=== PATIENT | female | born 1930 | race Caucasian/White ===

== ENCOUNTER 2016-08-31 09:26 | Inpatient (IN) | payer OTHER, MEDICARE ==
[~2016-08-31] VITALS: Ht 165.1 cm; Wt 65.8 kg
[~2016-08-31 09:26] MED LIST: LEXAPRO 10MG10 MG PO; LOTRISONE CREAM15 GM TOP; MOTRIN 400MG (400 MG PO; NORVASC 2.5 MG2.5 MG PO; TRAZODONE50 MG PO
--- NOTE | 2016-08-31 09:35 | ED ANKLE/FOOT INJURY COMPLAINT ---
History of Present Illness General Chief Complaint: Fall Stated Complaint: FELL OUT OF BED, L ANKLE PAIN Source: patient, family, old records, EMS Exam Limitations: dementia Vital Signs & Intake/Output Vital Signs & Intake/Output Vital Signs Date Time Temp Pulse Resp B/P Pulse O2 O2 Flow FiO2 Ox Delivery Rate 08/31 1224 98.6 86 18 157/72 98 Room Air 08/31 1202 97.8 88 19 150/62 96 Room Air 08/31 0927 97.4 90 18 154/65 95 Room Air Allergies Coded Allergies: NO KNOWN ALLERGIES (06/13/14) Reconcile Medications Amlodipine (Norvasc 2.5 MG Tab) 2.5 MG TABLET 1 TAB PO DAILY HTN (Reported) Amlodipine (Norvasc 2.5 MG Tab) 2.5 MG TABLET 1 MG PO DAILY HTN Lotrisone (Lotrisone Cream) 1 %-0.05 % CREAM..G. 1 SHERINE TOP QAMPM PRN RASH UNDER BREASTS (Reported) apply to affected area(s) Triage Nurses Notes Reviewed? yes HPI: PT FELL OUT OF BED THIS MORNING. SHE DENIES HITTING HER HEAD AND DENIES LOC. PT TOLD EMS THAT SHE HURT HER LEFT SHOULDER. ON ARRIVAL TO THE ER SHE DENIED LEFT SHOULDER OPAIN BUT STATES THAT SHE HAS PAIN IN HER LEFT ANKLE. THE PAIN INCREASES WITH MONEMENT. THERE IS NO RADIATION. SHE DESCRIBES THE PAIN SHARP. PAIN IS MODERATE ON THE SCALE. SHE DENIES ANUY OTHER INJURY. Past History Travel History Traveled to [place] past 21 day No Medical History Any Pertinent Medical History? see below for history Neurological: dementia EENT: NONE Cardiovascular: hypertension Respiratory: NONE Gastrointestinal: NONE Hepatic: NONE Renal: NONE Musculoskeletal: NONE Psychiatric: anxiety, depression, psychosis Endocrine: NONE History of MRSA: No History of VRE: No History of CDIFF: No Influenza Vaccine: 06/13/14 Surgical History Surgical History: non-contributory Psychosocial History Who do you live with Patient/Self What is your primary language Polish Tobacco Use: Never used ETOH Use: denies use Illicit Drug Use: denies illicit drug use Family History Hx Contributory? No Review of Systems Review of Systems Constitutional: Reports: no symptoms. EENTM: Reports: no symptoms. Respiratory: Reports: no symptoms. Cardiovascular: Reports: no symptoms. GI: Reports: no symptoms. Genitourinary: Reports: no symptoms. Musculoskeletal: Reports: see HPI, joint pain, joint swelling. Skin: Reports: no symptoms. Neurological/Psychological: Reports: no symptoms. Hematologic/Endocrine: Reports: no symptoms. Immunologic/Allergic: Reports: no symptoms. All Other Systems: Reviewed and Negative Physical Exam Physical Exam General Appearance: well developed/nourished, mild distress Head: atraumatic Eyes: Bilateral: PERRL, EOMI. Ears, Nose, Throat: normal pharynx, normal ENT inspection, hearing grossly normal Neck: normal inspection, supple, no midline tenderness Cardiovascular/Respiratory: normal breath sounds, normal peripheral pulses, regular rate/rhythm, no respiratory distress Back: normal inspection Leg/Knee/Thigh Left: normal range of motion, normal inspection Leg/Knee/Thigh Right: normal range of motion, normal inspection Ankle Left: ecchymosis, evidence of injury, pain, soft tissue tenderness, swelling Ankle Right: normal inspection, normal range of motion Foot Left: normal inspection, normal range of motion Foot Right: normal inspection, normal range of motion Neuro/Vascular: normal motor function, normal sensation Psychiatric: awake, alert, oriented x 3 Skin: intact, normal color, warm/dry Progress Differential Diagnosis: fracture, dislocation, sprain, contusion Plan of Care: Orders Procedure Date/time Status Regular Diet 08/31 D Active Patient Data 08/31 1519 Active Admit to inpatient 08/31 1508 Active URINALYSIS 08/31 1316 Complete COMPREHENSIVE METABOLIC PANEL 08/31 1316 Complete CBC WITHOUT DIFFERENTIAL 08/31 1316 Complete CASE MANAGEMENT CONSULT 08/31 1038 Active Laboratory Tests 08/31/16 1350: Anion Gap 12, Estimated GFR > 60, BUN/Creatinine Ratio 30.0 H, Glucose 170 H, Calcium 9.1, Total Bilirubin 0.7, AST 42 H, ALT 37, Alkaline Phosphatase 53, Total Protein 6.9, Albumin 4.3, Globulin 2.6, Albumin/Globulin Ratio 1.7, CBC w Diff NO MAN DIFF REQ, RBC 4.22, MCV 90.8, MCH 30.2, RDW 13.6, MPV 6.9 L, Gran % 81.9 H, Lymphocytes % 10.1 L, Monocytes % 7.5, Eosinophils % 0.2, Basophils % 0.3, Absolute Granulocytes 6.3, Absolute Lymphocytes 0.8 L, Absolute Monocytes 0.6, Absolute Eosinophils 0, Absolute Basophils 0, PUBS MCHC 33.3, Urinalysis LIGHT H, Urine Color YEL, Urine Clarity CLEAR, Urine pH 6.0, Ur Specific [place] 1.020, Urine Protein TRACE H, Urine Ketones NEG, Urine Nitrite NEG, Urine Bilirubin NEG, Urine Urobilinogen 0.2, Ur Leukocyte Esterase TRACE H, Ur Microscopic SEDIMENT EXAMINED, Urine WBC 1-3 H, Ur Epithelial Cells RARE, Urine Mucus FEW, Urine Hemoglobin NEG, Urine Glucose NEG Diagnostic Imaging: Viewed by Me: Radiology Read. Discussed w/RAD: Radiology Read. Radiology Impression: PATIENT: RODRICK DOWLING PRESENT AGE: 85 PATIENT ACCOUNT NO: [id number] : 32 LOCATION: [facility] ORDERING PHYSICIAN: DELORES BOLAÑOS MD SERVICE DATE: 08/31/16 EXAM TYPE: RAD - XRY-ANKLE 3 OR MORE VIEWS L EXAMINATION: XR ANKLE, LEFT CLINICAL INFORMATION: Fell out of bed. Pain. COMPARISON: None TECHNIQUE: AP, lateral, and mortise views of the left ankle. FINDINGS: 5 mm displaced lateral malleolar fracture with bimalleolar soft tissues swelling. Widening of the ankle mortise is seen anteriorly and laterally. No additional fractures seen. There is small size calcaneal heel spur. IMPRESSION: 5 mm displaced lateral malleolar fracture with moderate bimalleolar soft tissue swelling. Small calcaneal heel spur. DICTATED BY: DONALD CRUZ MD DATE/TIME DICTATED:08/31/161010 DRAPERY HAND:ALIVIA DATE/TIME TRANSCRIBED:08/31/161010 CONFIDENTIAL, DO NOT COPY WITHOUT APPROPRIATE AUTHORIZATION. <Electronically signed in Other Vendor System> SIGNED BY: DONALD CRUZ MD 08/31/16 1016, PATIENT: RODRICK DOWLING PRESENT AGE: 85 PATIENT ACCOUNT NO: [id number] : 32 LOCATION: [facility] ORDERING PHYSICIAN: DELORES BOLAÑOS MD SERVICE DATE: 08/31/16 EXAM TYPE: RAD - XRY-SHOULDER COMPLETE-LEFT EXAMINATION: XR SHOULDER, LEFT CLINICAL INFORMATION: Pain status post fall. Evaluate for fracture. COMPARISON: None TECHNIQUE: 3 views of the left shoulder. FINDINGS: Diffuse osteopenia. No acute fracture or dislocation. Glenohumeral joint space poorly evaluated due to slightly nonstandard positioning. There may be mild joint space narrowing. Mild degenerative changes at the acromioclavicular joint. No soft tissue calcifications. IMPRESSION: Osteopenia. No acute fracture or dislocation. DICTATED BY: ESTRELLITA POLLARD MD DATE/TIME DICTATED:08/31/161138 DRAPERY HAND:ALIVIA DATE/TIME TRANSCRIBED:08/31/161138 CONFIDENTIAL, DO NOT COPY WITHOUT APPROPRIATE AUTHORIZATION. <Electronically signed in Other Vendor System> SIGNED BY: ESTRELLITA POLLARD MD 08/31/16 1146 Comments: AFTER BEING IN ER, SHE BEGAN TO COMPLAIN OF LEFT SHOULDER PAIN WITH MOVEMENT, NO RADIAITON, ACHY SENSATION, NO RADAITION, MILD ON THE ASCALE. D/W DR. GILBERT, HE WILL SEE PT AN OUTPATIENT. Departure Departure Disposition: STILL A PATIENT Condition: Stable Clinical Impression Primary Impression: Closed left ankle fracture Referrals: ARMANI ZAPATA,ALO Martin Departure Forms: Customer Survey General Discharge Information Admission Note Spoke With: ANNA ZAPATA,GT Miller Documentation of Exam: Documentation of any treatments & extenuating circumstances including Concerns Regarding Discharge (functional status, medication knowledge or non-compliance, living conditions, etc.) that warrant an admission rather than observation: [PT IS NONWEIGHT BEARING ON LEFT ANKLE, SHE IS FROM [facility] BUT WILL BE UNSAFE TO RETURN THERE SECONDARY TO HER ANKLE FRACTURE. SHE WILL REQUIRE ADMISSION AND SUBSEQUENT PLACEMENT. PT WILL NEED TO SEE PT, CASE MANAGEMENT CONSULT. PT IS UNABLE TO CARE FOR HERSELF AT [facility]] Procedures Splinting Location: LEFT ANKLE Manual Alignment Performed: Yes Hand-Made Type: orthoglass Splint: POSTERIOR AND U-BOOT Splint Applied By: splint applied by in Pre-Proc Neuro Vasc Exam: normal Post-Proc Neuro Vasc Exam: normal
--- NOTE | 2016-08-31 10:16 | RADIOLOGY REPORT ---
EXAMINATION: XR ANKLE, LEFT CLINICAL INFORMATION: Fell out of bed. Pain. COMPARISON: None TECHNIQUE: AP, lateral, and mortise views of the left ankle. FINDINGS: 5 mm displaced lateral malleolar fracture with bimalleolar soft tissues swelling. Widening of the ankle mortise is seen anteriorly and laterally. No additional fractures seen. There is small size calcaneal heel spur. IMPRESSION: 5 mm displaced lateral malleolar fracture with moderate bimalleolar soft tissue swelling. Small calcaneal heel spur.
--- NOTE | 2016-08-31 11:46 | RADIOLOGY REPORT ---
EXAMINATION: XR SHOULDER, LEFT CLINICAL INFORMATION: Pain status post fall. Evaluate for fracture. COMPARISON: None TECHNIQUE: 3 views of the left shoulder. FINDINGS: Diffuse osteopenia. No acute fracture or dislocation. Glenohumeral joint space poorly evaluated due to slightly nonstandard positioning. There may be mild joint space narrowing. Mild degenerative changes at the acromioclavicular joint. No soft tissue calcifications. IMPRESSION: Osteopenia. No acute fracture or dislocation.
[2016-08-31 14:13] LABS: ABSOLUTE BASOPHIL COUNT 0 /CUMM (0.0-0.2); ABSOLUTE EOSINOPHIL COUNT 0 /CUMM (0.0-0.7); ABSOLUTE GRANULOCYTE CT 6.3 /CUMM (1.4-6.5); ABSOLUTE LYMPH COUNT 0.8 /CUMM (1.2-3.4); ABSOLUTE MONOCYTE COUNT 0.6 /CUMM (0.10-0.60); BASOPHIL % 0.3 % (0.0-2.0); EOSINOPHIL % 0.2 % (0-5); GRANULOCYTE % 81.9 % (42.2-75.2); HEMATOCRIT 38.3 % (37-47); MEAN CORPUSCULAR HGB 30.2 PG (27.0-31.0); MEAN CORPUSCULAR HGB CONC 33.3 G/DL (33.0-37.0); MEAN CORPUSCULAR VOLUME 90.8 FL (81.0-99.0); MEAN PLATELET VOLUME 6.9 FL (7.4-10.4); PLATELET COUNT 143 /CUMM (130-400); RBC DISTRIBUTION WIDTH 13.6 % (11.5-14.5); RED BLOOD CELL CT 4.22 /CUMM (4.20-5.40); WHITE BLOOD CELL COUNT 7.8 /CUMM (4.8-10.8)
--- NOTE | 2016-08-31 15:25 | History & Physical ---
EDWARD VIRK 08/31/16 1524: General Information and HPI MD Statement: I have seen and personally examined RODRICK DOWLING and documented this H&P. The patient is a 85 year old F who presented with a patient stated chief complaint of [left shoulder and ankle pain]. Source of Information: patient, family, old records Exam Limitations: unable to give history, not alert/orientated History of Present Illness: Mrs Dowling is an 85-year-old lady with a PMH of dementia, HTN, depression/ anxiety who was brought in by ambulance from [facility] after a fall earlier this morning. Information was obtained from the patient's family member: They received a call this morning from the facility that she had suffered 2 falls out of bed. On arrival her primary complaint was the left shoulder and ankle pain. At her baseline she ambulates with the aid of a rolling walker, is independent with most of her ADLs (feeding, dressing) but does require assistance with hygiene and IADLs. At the moment the patient annmarie endorse occasional discomfort in her left ankle and knee. She denies any chest pain, shortness of breath, palpitations abdominal pain worsening pain in the left. Allergies/Medications Allergies: Coded Allergies: NO KNOWN ALLERGIES (06/13/14) Home Med list Acetaminophen (8 Hour) 650 MG TABLET.ER 1 TAB PO BID PAIN (Reported) Amlodipine Besylate 5 MG TABLET 1 TAB PO DAILY BP (Reported) Diclofenac Sodium (Voltaren) 1 % GEL..GRAM. 4 GM TOP BID PRN KNEE PAIN ( Reported) apply to affected area(s) Docusate Sodium (Colace) 100 MG CAPSULE 1 CAP PO BID STOOL SOFTENER (Reported ) Furosemide (Lasix) 20 MG TABLET 1 TAB PO DAILY DIURETIC (Reported) Olanzapine 15 MG TABLET 1 TAB PO QHS MENTAL HEALTH (Reported) Pregabalin (Lyrica) 25 MG CAPSULE 1 CAP PO BID PAIN (Reported) Trazodone HCl 50 MG TABLET 1 TAB PO QHS MENTAL HEALTH/ANXIETY (Reported) Past History Travel History Traveled to [place] past 21 day No Medical History Neurological: dementia EENT: NONE Cardiovascular: hypertension Respiratory: NONE Gastrointestinal: NONE Hepatic: NONE Renal: NONE Musculoskeletal: NONE Psychiatric: anxiety, depression, psychosis Endocrine: NONE History of MRSA: No History of VRE: No History of CDIFF: No Surgical History Surgical History: non-contributory Past Family/Social History Psychosocial History ETOH Use: denies use Illicit Drug Use: denies illicit drug use Review of Systems Review of Systems Constitutional: Reports: see HPI. EENTM: Reports: no symptoms. Cardiovascular: Reports: no symptoms. Respiratory: Reports: no symptoms. GI: Reports: no symptoms. Musculoskeletal: Reports: see HPI. Neurological/Psychological: Reports: no symptoms. Exam & Diagnostic Data Last 24 Hrs of Vital Signs/I&O Vital Signs Date Time Temp Pulse Resp B/P Pulse O2 O2 Flow FiO2 Ox Delivery Rate 08/31 1608 98.6 103 18 157/81 96 Room Air 08/31 1224 98.6 86 18 157/72 98 Room Air 08/31 1202 97.8 88 19 150/62 96 Room Air 08/31 0927 97.4 90 18 154/65 95 Room Air Intake & Output 08/31 1600 08/31 0800 08/31 0000 Intake Total Output Total Balance Patient 145 lb Weight Physical Exam General Appearance Alert, Cooperative, AAO X1 (person) Skin No Breakdown HEENT EOMI, Mucous Membr. moist/pink Cardiovascular Regular Rate, Normal S1, Normal S2 Lungs Normal Air Movement, Diminshed breath sounds in the basilar regions Abdomen Normal Bowel Sounds, Soft, No Tenderness, Umbilical hernia present that is easily reducible with light pressure Neurological Normal Speech, Sensation Intact Extremities No Edema, Normal Pulses, Left leg is wrapped in a clean bandage. She is able to spontaneously flex her toes. Sensation intact in the toes Last 24 Hrs of Labs/Gerardo: Laboratory Tests 08/31/16 1350: Anion Gap 12, Estimated GFR > 60, BUN/Creatinine Ratio 30.0 H, Glucose 170 H, Calcium 9.1, Total Bilirubin 0.7, AST 42 H, ALT 37, Alkaline Phosphatase 53, Total Protein 6.9, Albumin 4.3, Globulin 2.6, Albumin/Globulin Ratio 1.7, CBC w Diff NO MAN DIFF REQ, RBC 4.22, MCV 90.8, MCH 30.2, RDW 13.6, MPV 6.9 L, Gran % 81.9 H, Lymphocytes % 10.1 L, Monocytes % 7.5, Eosinophils % 0.2, Basophils % 0.3, Absolute Granulocytes 6.3, Absolute Lymphocytes 0.8 L, Absolute Monocytes 0.6, Absolute Eosinophils 0, Absolute Basophils 0, PUBS MCHC 33.3, Urinalysis LIGHT H, Urine Color YEL, Urine Clarity CLEAR, Urine pH 6.0, Ur Specific [place] 1.020, Urine Protein TRACE H, Urine Ketones NEG, Urine Nitrite NEG, Urine Bilirubin NEG, Urine Urobilinogen 0.2, Ur Leukocyte Esterase TRACE H, Ur Microscopic SEDIMENT EXAMINED, Urine WBC 1-3 H, Ur Epithelial Cells RARE, Urine Mucus FEW, Urine Hemoglobin NEG, Urine Glucose NEG Assessment/Plan Assessment: 85-year-old lady with a PMH of dementia, HTN, depression/anxiety who was BIBA from [facility] after suffering a fall this morning. VS: 154/65, HR 90, RR 18, SPO2 95% on RA, T 97.4 Pertinent labs: WBC 12.7/30.3, BUN/Cr CR 18/0.6, glucose 170, sodium 142, potassium 3.7 Left ankle x-ray: 5 mm displaced lateral malleolar fracture with bimalleolar soft tissues swelling. Widening of the ankle mortise is seen anteriorly and laterally. No additional fractures seen. There is small size calcaneal heel spur. Problem list: 1. Please lateral malleolus fracture 2. HTN 3. Depression/anxiety Plan: * Admit to general medicine for further management * AM team: Please contact orthopedics to evaluate the patient. Family requests to have a discussion with orthopedics in the a.m. with regards to risks/benefits of surgery versus conservative management * Analgesia: Tylenol 975 mg Q8 scheduled. Will avoid opioids in the setting of potential delirium if possible * Continue Lyrica 25 mg BID * DVT prophylaxis: Heparin subcutaneous * HTN: Continue amlodipine 5 mg, furosemide 20 mg. Check orthostatics in the a.m. * Depression: Continue with olanzapine 15 mg and trazodone 50 mg QHS * PT evaluation once weightbearing status has been provided by orthopedics * Regular diet * CODE STATUS: DNR/DNI AM TEAM: * Patient's son who is POA is currently traveling and may not have phone service. If need be, contact his Veronica Dowling * Follow-up vitamin D level and if below 20, consider 50,000 international units supplementation As Ranked By This Provider Problem List: 1. Closed left ankle fracture 2. Depression 3. High blood pressure 4. Dementia Core Measures/Miscellaneous Acute Coronary Syndrome ACS Diagnosis: No Cerebrovascular Accident CVA/TIA Diagnosis: No Congestive Heart Failure CHF Diagnosis: No Venous Thromboembolism VTE Risk Factors: Age > 40 VTE Prophylaxis Ordered Inpt: Pharm- Lovenox No Mech VTE prophylaxis d/t: No contraindications No VTE Pharm Prophylaxis d/t: No contraindications VTE Diagnosis: No VTE Type: NONE VTE Confirmed by (Test): NONE Severe Sepsis Severe Sepsis Present: No Septic Shock Septic Shock Present: No Miscellaneous Documentation Attending Case Discussed With: ANNA ZAPATA,GT Miller Primary Care Physician: CINDY PARTIDA MD Patient sees these Specialists NA Level of Patient Care: General Medicine Resident Review Statement Resident Statement: examined this patient, discussed with qa internship, agreed with qa internship, discussed with family, discussed with nursing, reviewed images GT CASTILLO MD 08/31/16 1904: Attending MD Review Statement Attending Statement Attending MD Statement: examined this patient, discuss w/resident/PA/CHIEF SALES OFFICER, agreed w/resident/PA/CHIEF SALES OFFICER, discussed with family, reviewed EMR data (avail), discussed with nursing, reviewed images Attending Assessment/Plan: 85-year-old female past medical history of dementia, underlying psychiatric diagnosis on olanzapine and trazodone and hypertension. She is here status post a fall at the assisted living facility with an ankle fracture and a non weight bearing status. Given the non weight bearing status and the inability to use the walker she is being admitted as she is unsafe to be discharged to the assisted living facility and will need active physical therapy and likely STR placement. We'll continue her Norvasc and Lasix, continue her olanzapine and Lyrica, continue her trazodone. Put her on DVT prophylaxis. Use nonnarcotic analgesia to avoid triggering delirium in a patient with underlying dementia and follow-up with PT closely.
[2016-08-31] MEDS ORDERED: COLACE100 M1 PO (16:51)
[2016-08-31] MEDS ORDERED: AMLODIPINE BESYL5 M1 PO (16:51)
[2016-08-31] MEDS ORDERED: LASIX20 M1 PO (16:51)
[2016-08-31] MEDS ORDERED: 8 HOUR650 MG PO (16:52)
[2016-08-31] MEDS ORDERED: OLANZAPINE15 M1 PO (16:53)
[2016-08-31] MEDS ORDERED: LYRICA25 M1 PO (16:53)
[2016-08-31] MEDS ORDERED: VOLTAREN100 GM TOP (16:54)
[2016-08-31] MEDS ORDERED: TRAZODONE HCL50 M1 PO (16:54)
--- NOTE | 2016-08-31 19:07 | Admission Certification ---
Admission Certification Certification Statement - As attending physician, I certify that at the time of - admission, based on clinical presentation, severity of - symptoms, need for further diagnostic testing and - therapeutic interventions, and risk of adverse outcomes - without in-hospital treatment, in my clinical assessment, - this patient requires an acute hospital stay for a minimum - of two nights or longer. I have also considered psychsocial - factors such as support system, advanced age, financial - issues, cognitive issues, and failed out-patient treatments, - past re-admission history, safety of patient, and lack of - compliance as applicable. Specific rationale supporting this admission is: fall with ankle fracture and non weight bearing ambulation status
[2016-08-31 19:39] VITALS: BP 148/92
[2016-09-01 00:24] VITALS: BP 128/30
--- NOTE | 2016-09-01 08:23 | PN- Housestaff ---
Subjective Follow-up For: left shoulder and ankle pain Subjective: Patient is alert, oriented to time and place, knows she is in [place] and that she hurt her left ankle and came here. warren not appear in distress, reports pain 8/10 in the left foot. reports her sister knows she is in the hospital. Patient denies any fever, chills, SOB, abdominal pain, N/V, diarrhea. Review of Systems Constitutional: Denies: chills, fever, weakness. EENTM: Reports: no symptoms. Cardiovascular: Reports: no symptoms. Respiratory: Reports: no symptoms. Gastrointestinal: Reports: no symptoms. Genitourinary: Reports: no symptoms. Musculoskeletal: Reports: joint pain (left ankle). Skin: Reports: no symptoms. Objective Last 24 Hrs of Vital Signs/I&O Vital Signs Date Time Temp Pulse Resp B/P Pulse O2 O2 Flow FiO2 Ox Delivery Rate 09/01 0937 86 136/80 09/01 0923 97.8 86 20 136/80 94 Room Air 09/01 0600 97.7 09/01 0024 99.0 88 20 128/30 93 08/31 1939 98.0 107 18 148/92 93 Room Air 08/31 1845 98.6 92 18 153/84 98 Room Air 08/31 1608 98.6 103 18 157/81 96 Room Air 08/31 1224 98.6 86 18 157/72 98 Room Air 08/31 1202 97.8 88 19 150/62 96 Room Air Intake & Output 09/01 1600 09/01 0800 09/01 0000 Intake Total 120 400 Output Total 350 Balance 120 50 Intake, Oral 120 400 Output, Urine 350 Physical Exam General Appearance: Alert, Cooperative, No Acute Distress Skin: there is swelling and edema as well as bruising over the left foot, ankle and distal left leg is immobilized by a splint. HEENT: Atraumatic, EOMI Neck: Supple, No JVD Cardiovascular: Regular Rate, Normal S1, Normal S2 Lungs: Normal Air Movement, decreased breath sounds at bases Abdomen: Normal Bowel Sounds, Soft, No Tenderness, distended, umbilical hernia noted, reducible, no tenderness erythema and discoloration noted. Neurological: Normal Speech, Normal Tone Extremities: Normal Pulses, swelling and tenderness over the left foot, ankle and distal lower extremity are covered with dressing and are immobilized with a splint, patient is able to move her toes, sensation intact Vascular: Pulses Symmetrical Current Medications: Current Medications Sig/Jenn Start time Last Medication Dose Route Stop Time Status Admin Acetaminophen 975 MG TID 08/31 1851 AC 09/01 PO 0937 Acetaminophen 650 MG Q6P PRN 08/31 1800 DC PO Amlodipine Besylate 5 MG DAILY 09/01 1000 AC 09/01 PO 0937 Diclofenac Sodium 1 SHERINE BID PRN 08/31 1815 AC TOP Docusate Sodium 100 MG BID 08/31 2200 AC 09/01 PO 0937 Enoxaparin Sodium 40 MG AT BEDTIME 08/31 2200 AC 08/31 SC 2143 Furosemide 20 MG DAILY 09/01 1000 AC 09/01 PO 0936 Ibuprofen 600 MG Q6P PRN 08/31 2115 AC PO Influenza Virus 0.5 ML ONCE ONE 08/31 2044 DC Vaccine IM 08/31 204 Olanzapine 15 MG AT BEDTIME 08/31 2200 AC 08/31 PO 2143 Oxycodone HCl 10 MG Q6P PRN 08/31 1800 DC PO Oxycodone/ 1 TAB Q6P PRN 08/31 1800 DC Acetaminophen PO Patient Medication 1 UNIT ONE NR 08/31 1845 [place] Teaching [place] 08/31 1900 Patient Medication 1 UNIT ONE NR 08/31 1845 [place] Teaching [place] 08/31 1900 Pregabalin 25 MG BID 08/31 2199 AC 09/01 PO 0945 Trazodone HCl 50 MG AT BEDTIME 08/31 2199 AC 08/31 PO 2143 Last 24 Hrs of Lab/Gerardo Results Last 24 Hrs of Labs/Mics: Laboratory Tests 08/31/16 1350: Anion Gap 12, Estimated GFR > 60, BUN/Creatinine Ratio 30.0 H, Glucose 170 H, Calcium 9.1, Total Bilirubin 0.7, AST 42 H, ALT 37, Alkaline Phosphatase 53, Total Protein 6.9, Albumin 4.3, Globulin 2.6, Albumin/Globulin Ratio 1.7, 25-OH Vitamin D Total 5.8 L, CBC w Diff NO MAN DIFF REQ, RBC 4.22, MCV 90.8, MCH 30.2 , RDW 13.6, MPV 6.9 L, Gran % 81.9 H, Lymphocytes % 10.1 L, Monocytes % 7.5, Eosinophils % 0.2, Basophils % 0.3, Absolute Granulocytes 6.3, Absolute Lymphocytes 0.8 L, Absolute Monocytes 0.6, Absolute Eosinophils 0, Absolute Basophils 0, PUBS MCHC 33.3, Urinalysis LIGHT H, Urine Color YEL, Urine Clarity CLEAR, Urine pH 6.0, Ur Specific [place] 1.020, Urine Protein TRACE H, Urine Ketones NEG, Urine Nitrite NEG, Urine Bilirubin NEG, Urine Urobilinogen 0.2, Ur Leukocyte Esterase TRACE H, Ur Microscopic SEDIMENT EXAMINED, Urine WBC 1-3 H, Ur Epithelial Cells RARE, Urine Mucus FEW, Urine Hemoglobin NEG, Urine Glucose NEG Assessment/Plan Assessment: 85-year-old lady with a PMH of dementia, HTN, depression/anxiety who was BIBA from [facility] after suffering a fall this morning. VS: 154/65, HR 90, RR 18, SPO2 95% on RA, T 97.4 Pertinent labs: WBC 12.7/30.3, BUN/Cr CR 18/0.6, glucose 170, sodium 142, potassium 3.7 Left ankle x-ray: 5 mm displaced lateral malleolar fracture with bimalleolar soft tissues swelling. Widening of the ankle mortise is seen anteriorly and laterally. No additional fractures seen. There is small size calcaneal heel spur. Problem list: 1. lateral malleolus fracture 2. HTN 3. Depression/anxiety Plan: * Orthopedics saw the patient and had discussion with family with regards to risks/benefits of surgery versus conservative management. * Analgesia: Tylenol 975 mg Q8 scheduled. Will avoid opioids in the setting of potential delirium if possible * Continue Lyrica 25 mg BID * DVT prophylaxis: Lovenox subcutaneous * HTN: Continue amlodipine 5 mg, furosemide 20 mg. * Depression: Continue with olanzapine 15 mg and trazodone 50 mg QHS * PT evaluation put in will follow * Regular diet * CODE STATUS: DNR/DNI Patient's son who is POA is currently traveling and may not have phone service. If need be, contact his Veronica David * Follow-up vitamin D level and if below 20, consider 50,000 international units supplementation Problem List: 1. Closed left ankle fracture 2. Dementia Pain Ratin Pain Location: left ankle Pain Goal: Pain 4 or less Pain Plan: tylenol diclofenac ibuprofen Tomorrow's Labs & Rationales: BEP (monitor Cr)
[2016-09-01 09:23] VITALS: BP 136/80
--- NOTE | 2016-09-01 10:07 | PN- Att Addend ---
Attending Addendum Attending Brief Note Patient seen and examined. Agree with the internal corrosion specialist's note 85-year-old female past medical history of dementia, underlying psychiatric diagnosis on olanzapine and trazodone and hypertension. She is here status post a fall at the assisted living facility with a left ankle displaced e fracture and a non weight bearing status. Given the non weight bearing status and the inability to use the walker she is being admitted as she is unsafe to be discharged to the assisted living facility and will need active physical therapy and likely STR placement. Dr. Correa from orthopedics is going to see her officially today. We'll continue her Norvasc and Lasix, continue her olanzapine and Lyrica, continue her trazodone. Put her on DVT prophylaxis. Use nonnarcotic analgesia to avoid triggering delirium in a patient with underlying dementia. Please encourage by mouth intake and make sure patient's not getting dehydrated. Please follow-up BEP with BUN and creatinine in a.m. .
--- NOTE | 2016-09-01 11:06 | Cons- Orthopedic ---
General Information and HPI Consulting Request Date of Consult: 09/01/16 Requested By: GT CASTILLO MD Reason for Consult: Left ankle fracture Source of Information: family Exam Limitations: confusion, poor historian History of Present Illness: Danii is a 85-year-old female who was brought to emergency room from a assisted-living facility with complaints of left ankle pain. X-rays in the emergency room revealed a displaced distal fibular fracture of the left ankle. She was splinted. She was admitted to medical service for placement to a rehabilitation facility. This morning on examination the patient's pleasant somewhat confused. She complains of mild left ankle pain. Allergies/Medications Allergies: Coded Allergies: NO KNOWN ALLERGIES (06/13/14) Home Med List: Acetaminophen (8 Hour) 650 MG TABLET.ER 1 TAB PO BID PAIN (Reported) Amlodipine Besylate 5 MG TABLET 1 TAB PO DAILY BP (Reported) Diclofenac Sodium (Voltaren) 1 % GEL..GRAM. 4 GM TOP BID PRN KNEE PAIN ( Reported) apply to affected area(s) Docusate Sodium (Colace) 100 MG CAPSULE 1 CAP PO BID STOOL SOFTENER (Reported ) Furosemide (Lasix) 20 MG TABLET 1 TAB PO DAILY DIURETIC (Reported) Olanzapine 15 MG TABLET 1 TAB PO QHS MENTAL HEALTH (Reported) Pregabalin (Lyrica) 25 MG CAPSULE 1 CAP PO BID PAIN (Reported) Trazodone HCl 50 MG TABLET 1 TAB PO QHS MENTAL HEALTH/ANXIETY (Reported) Current Medications: Current Medications Sig/Jenn Start time Last Medication Dose Route Stop Time Status Admin Acetaminophen 975 MG TID 08/31 1851 AC 09/01 PO 0937 Acetaminophen 650 MG Q6P PRN 08/31 1800 DC PO Amlodipine Besylate 5 MG DAILY 09/01 1000 AC 09/01 PO 0937 Diclofenac Sodium 1 SHERINE BID PRN 08/31 1815 AC TOP Docusate Sodium 100 MG BID 08/31 2200 AC 09/01 PO 0937 Enoxaparin Sodium 40 MG AT BEDTIME 08/31 2199 AC 08/31 SC 2143 Furosemide 20 MG DAILY 09/01 1000 AC 09/01 PO 0936 Ibuprofen 600 MG Q6P PRN 08/31 2115 AC PO Influenza Virus 0.5 ML ONCE ONE 08/31 2044 DC Vaccine IM 08/31 2045 Olanzapine 15 MG AT BEDTIME 08/31 2200 AC 08/31 PO 2143 Oxycodone HCl 10 MG Q6P PRN 08/31 1800 DC PO Oxycodone/ 1 TAB Q6P PRN 08/31 1800 DC Acetaminophen PO Patient Medication 1 UNIT ONE NR 08/31 1845 DC Teaching ED 08/31 1900 Patient Medication 1 UNIT ONE NR 08/31 1845 DC Teaching ED 08/31 1900 Pregabalin 25 MG BID 08/31 2199 AC 09/01 PO 0945 Trazodone HCl 50 MG AT BEDTIME 08/31 2199 AC 08/31 PO 2143 Past History Medical History Blood Transfusion Hx: No Neurological: dementia EENT: NONE Cardiovascular: hypertension Respiratory: NONE Gastrointestinal: NONE Hepatic: NONE Renal: NONE Musculoskeletal: NONE Psychiatric: anxiety, depression, psychosis Endocrine: NONE Blood Disorders: NONE Cancer(s): NONE TEST HOLE DRILLER/Reproductive: NONE Surgical History Pertinent Surgical History: non-contributory Psychosocial History Where Do You Live? Assisted Living Smoking Status: Unknown If Ever Smoked ETOH Use: denies use Illicit Drug Use: denies illicit drug use Exam & Diagnostic Data Vital Signs and I&O On physical exam the patientVital Signs Date Time Temp Pulse Resp B/P Pulse O2 O2 Flow FiO2 Ox Delivery Rate 09/01 0937 86 136/80 09/01 0923 97.8 86 20 136/80 94 Room Air 09/01 0600 97.7 09/01 0024 99.0 88 20 128/30 93 08/31 1939 98.0 107 18 148/92 93 Room Air 08/31 1845 98.6 92 18 153/84 98 Room Air 08/31 1608 98.6 103 18 157/81 96 Room Air 08/31 1224 98.6 86 18 157/72 98 Room Air 08/31 1202 97.8 88 19 150/62 96 Room Air Intake & Output 09/01 1600 09/01 0800 09/01 0000 08/31 1600 08/31 0800 08/31 0000 Intake Total 120 400 Output Total 350 Balance 120 50 Intake, Oral 120 400 Output, Urine 350 Patient 145 lb Weight On physical exam the patient is awake and alert. Head and neck exam reveals a normocephalic atraumatic skull. Pupils are equal round and reactive. The neck is supple with no JVD. There is no pain with range of motion of the cervical spine. Abdomen is round soft and nontender. Cardiovascular exam reveals S1 and S2. Lungs are clear bilaterally. Bilateral partial knee exams reveal some mild pain with range of motion of the right shoulder. There's no gross crepitus. The right upper extremity neurovascular intact. The left upper extremity has no pain with range of motion of the shoulder elbow or wrist. It is neurovascularly intact. The right lower extremity has no pain with range of motion of the hip knee or ankle. It is neurovascularly intact. The left dorsum has a splint in place and the lower leg. Capillary refills less than 2 seconds. Sensation light touch is intact in the toes. She has no pain with range of motion of the hip or knee. Assessment/Plan Assessment/Plan X-rays of the left ankle reveal displaced fibular fracture with no widening of the ankle mortise. Plan the patient will be treated nonoperatively, nonweightbearing for 6 weeks in the splint or in a cast. I will repeat x-rays that were placed on the left ankle following splint application to make sure there's been no significant change in alignment. I did have a conversation with the patient's power of attorneys . The fact that the power of assistant prosecuting attorney is on the road traveling. The understands the surgical plan. I do not anticipate that the patient will need surgical intervention however if there is a change in alignment or plans we have up to 10 days and to fix the fracture. As was explained to the power of assistant prosecuting attorney his . Consult Acknowledgment - Thank you for your consult request.
--- NOTE | 2016-09-01 15:48 | RADIOLOGY REPORT ---
EXAMINATION: XR ANKLE, LEFT CLINICAL INFORMATION: Left ankle fracture with splint placement.. COMPARISON: Left ankle 08/31/2016. TECHNIQUE: AP, lateral, and mortise views of the left ankle. FINDINGS: There is a lateral fibular fracture stabilized with the left ankle splint. The fracture fragments are in alignment. There is bimalleolar soft tissue swelling as noted before. No change in the calcaneal heel spur. No additional fractures seen. IMPRESSION: Lateral fibular fracture utilized with the left ankle in a splint. The fracture fragments are in alignment. There is bimalleolar soft tissue swelling as was noted on the previous study.
[2016-09-01 16:20] VITALS: BP 140/72
[2016-09-02 00:39] VITALS: BP 118/84
--- NOTE | 2016-09-02 06:36 | Discharge Summary ---
Visit Information Visit Dates Admission Date: 08/31/16 Discharge Date: 09/03/2016 Hospital Course Course Attending Physician: CORNELL ZAPATA,CAPRICE Gonzales Primary Care Physician: CINDY PARTIDA MD Consulting Request: Consulting Specialty: Orthopedics Hospital Course: Mrs David is an 85-year-old lady with a PMH of dementia, HTN, depression/ anxiety who was brought in by ambulance from [facility] after a fall out of bed earlier that morning. Most information was obtained from a family member who reported receiving a call that she had suffered 2 falls out of bed and was complaining of left shoulder and ankle pain. At her baseline she ambulates with the aid of a rolling walker, is independent with most of her ADLs (feeding, dressing) does require some assistance with hygiene and IADLs. On initial presentation in the ER the patient complained of discomfort in her left knee and ankle. VS: 154/65, HR 90, RR 18, SPO2 95% on RA, T 97.4 PE on admission: AAO 1 (person) is. Most mucous membranes. RRR, normal S1/S2. Normal air movement with diminished breath sounds and basilar regions. Normal bowel sounds, soft, nontender with evidence of umbilical hernia that was easily reducible to light pressure. No edema, normal pulses and distal dorsalis pedis. Left leg is wrapped in a clean bandage. She is able to spontaneously flex her toes. Sensation intact in the toes Pertinent labs: WBC 12.7/30.3, BUN/Cr CR 18/0.6, glucose 170, sodium 142, potassium 3.7 Left ankle x-ray: 5 mm displaced lateral malleolar fracture with bimalleolar soft tissues swelling. Widening of the ankle mortise is seen anteriorly and laterally. No additional fractures seen. There is small size calcaneal heel spur. The patient was admitted to the general medicine floor for management of the following problems: Problem list: 1. 5 mm displaced lateral malleolar fracture with bimalleolar soft tissues swelling. 2. HTN 3. Depression/anxiety 4. Vitamin D deficiency Hospital course: 1. 5 mm displaced lateral malleolar fracture with bimalleolar soft tissues swelling. * The left ankle was splinted with a repeat x-ray showing fracture fragments in alignment as well as evidence of bimalleolar soft tissue swelling * Patient was assessed by our orthopedic surgeon Dr. Goodrich. Per his recommendations, in the setting of no widening of the ankle mortise, she will be treated nonoperatively with nonweightbearing for 6 weeks in the splint/cast. However, if there were to be a change in alignment or plans per family request, the plan would be to have the fix performed within 10 days of her current fracture * Current plan is to discharge the patient to short-term rehabilitation * Enteric-coated aspirin 81 mg daily for the next 6 weeks 2. HTN * Continued on amlodipine 5 mg daily. Blood pressure remained well controlled 3. Depression/anxiety * Continued her home dose of trazodone 50 mg daily at bedtime, olanzapine 15 mg daily at bedtime 4. Vitamin D deficiency * Vitamin D level of 5.8 * Restarted the patient on high-dose vitamin D 50,000 international units Q weekly Allergies: Coded Allergies: NO KNOWN ALLERGIES (06/13/14) Disposition Summary Disposition Principal Diagnosis: 5 mm displaced lateral malleolar fracture with bimalleolar soft tissues swelling. Additional Diagnosis: Vitamin D deficiency HTN Depression/anxiety Discharge Disposition: SNF Discharge Instructions General Discharge Information Code Status: Do Not Resucitate/Intubat Patient's Diet: Regular diet Patient's Activity: Nonweightbearing of left ankle for 6 weeks Follow-Up Instructions/Appts: Please follow-up with her PCP within 1-2 weeks after discharge. If the left ankle fracture were to become displaced or the pain were to significantly worsen, please contact your orthopedic surgeon immediately for recommendations on further management. In the setting of low vitamin D patient is started on high-dose vitamin D once weekly. Medications at Discharge Discharge Medications: Continue taking these medications: Docusate Sodium (Colace) 100 MG CAPSULE 1 Capsule ORAL TWICE DAILY Comments: Last Taken: 09/03/16 Time: 11:00 AM Amlodipine Besylate (Amlodipine Besylate) 5 MG TABLET 1 Tablet ORAL DAILY Comments: Last Taken: 09/03/16 Time: 11:00 AM Furosemide (Lasix) 20 MG TABLET 1 Tablet ORAL DAILY Comments: Last Taken: 09/03/16 Time: 11:00 AM Acetaminophen (8 Hour) 650 MG TABLET.ER 1 Tablet ORAL THREE TIMES DAILY Qty = 30 Comments: Last Taken: 09/03/16 Time: 11:00 AM RECIEVED 975 MG Pregabalin (Lyrica) 25 MG CAPSULE 1 Capsule ORAL TWICE DAILY Comments: Last Taken: 09/03/16 Time: 11:00 AM Olanzapine (Olanzapine) 15 MG TABLET 1 Tablet ORAL TAKE AT BEDTIME Comments: Last Taken: 09/02/16 Time: 10:00 PM Trazodone HCl (Trazodone HCl) 50 MG TABLET 1 Tablet ORAL TAKE AT BEDTIME Comments: Last Taken: 09/02/16 Time: 10:00 PM Diclofenac Sodium (Voltaren) 1 % GEL..GRAM. 4 Gram On the skin TWICE DAILY as needed for KNEE PAIN Instructions: apply to affected area(s) Comments: DID NOT RECEIVE IN HOSPITAL Start taking the following new medications: Ergocalciferol (Vitamin D2) (Vitamin D2) 50,000 UNIT CAPSULE 1 Tablet ORAL ONCE A WEEK Qty = 11 No Refills Aspirin (Ecotrin*) 81 MG TABLET.DR 1 Tablet ORAL DAILY Qty = 42 No Refills Comments: DID NOT RECEIVE IN HOSPITAL Copies To: JAQUAN ZAPATA,ALEX GOODRICH MD,VINCENZO Pike Attending MD Review Statement Documenting Attending: CORNELL ZAPATA,CAPRICE Gonzales Other Findings: Agree with the above discharge plan and summary. Patient being discharged to subacute rehabilitation today.
--- NOTE | 2016-09-02 07:20 | PN- Housestaff ---
See Addendum Subjective Follow-up For: LEFT ANKLE PAIN Subjective: Patient is alert, oriented to person and place and that she hurt her left ankle and came here. Knows it is Sarai but thinks it is spring time or summer and does not recall the year. Braun not appear in distress, is less talking compared to yesterday and is more startled. Patient denies any fever, chills, SOB, chest pain, abdominal pain, N/V, diarrhea. Review of Systems Constitutional: Denies: chills, fever. EENTM: Reports: no symptoms. Cardiovascular: Reports: no symptoms. Respiratory: Reports: no symptoms. Gastrointestinal: Reports: no symptoms. Genitourinary: Reports: no symptoms. Musculoskeletal: Denies: joint pain. Skin: Reports: no symptoms. Neurological/Psychological: Reports: paresthesia (left foot). Objective Last 24 Hrs of Vital Signs/I&O Vital Signs Date Time Temp Pulse Resp B/P Pulse O2 O2 Flow FiO2 Ox Delivery Rate 09/02 0039 97.1 77 20 118/84 96 09/01 1620 98.3 97 20 140/72 94 Room Air 09/01 0937 86 136/80 09/01 0923 97.8 86 20 136/80 94 Room Air Physical Exam General Appearance: Alert, Cooperative, No Acute Distress Skin: there is swelling and bruising at the site of the fracture, distal leg, ankle and foot on the left side. HEENT: Atraumatic, EOMI Neck: Supple, No JVD Cardiovascular: Regular Rate, Normal S1, Normal S2, No Murmurs Lungs: Clear to Auscultation, Normal Air Movement Abdomen: Soft, No Tenderness Neurological: Normal Tone, sensation (to touch) on the left foot and toes are intact in the exam. Extremities: Normal Pulses Vascular: Pulses Symmetrical Current Medications: Current Medications Sig/Jenn Start time Last Medication Dose Route Stop Time Status Admin Acetaminophen 975 MG TID 08/31 1851 AC 09/01 PO 2202 Amlodipine Besylate 5 MG DAILY 09/01 1000 AC 09/01 PO 09 Cholecalciferol 1,000 IU DAILY 09/01 1240 AC 09/01 PO 1650 Diclofenac Sodium 1 SHERINE BID PRN 08/31 1815 AC TOP Docusate Sodium 100 MG BID 08/31 220 AC 09/01 PO 2203 Enoxaparin Sodium 40 MG AT BEDTIME 08/31 2199 AC 09/01 SC 2211 Furosemide 20 MG DAILY 09/01 1000 AC 09/01 PO 0936 Ibuprofen 600 MG Q6P PRN 08/31 2114 AC PO Olanzapine 15 MG AT BEDTIME 08/31 2199 AC 09/01 PO 220 Pregabalin 25 MG BID 08/31 2199 AC 09/01 PO 220 Trazodone HCl 50 MG AT BEDTIME 08/31 2199 AC 09/01 PO 2202 Last 24 Hrs of Lab/Gerardo Results Last 24 Hrs of Labs/Mics: Laboratory Tests 09/02/16 0616: Anion Gap 7, Estimated GFR > 60, BUN/Creatinine Ratio 21.3 Assessment/Plan Assessment: 85-year-old lady with a PMH of dementia, HTN, depression/anxiety who was BIBA from [facility] after suffering a fall this morning. VS: 154/65, HR 90, RR 18, SPO2 95% on RA, T 97.4 Pertinent labs: WBC 12.7/30.3, BUN/Cr CR 18/0.6, glucose 170, sodium 142, potassium 3.7 Left ankle x-ray: 5 mm displaced lateral malleolar fracture with bimalleolar soft tissues swelling. Widening of the ankle mortise is seen anteriorly and laterally. No additional fractures seen. There is small size calcaneal heel spur. Problem list: 1. lateral fibula fracture, no misalignment 2. HTN 3. Depression/anxiety 4. Vitamin D deficiency Plan: * Orthopedics saw the patient and had discussion with family with regards to risks/benefits of surgery versus conservative management and decided for conservative management, repeat Xray did not show any mislignment. Will discharge the patient to [facility]. * Analgesia: Tylenol 975 mg Q8 scheduled. Will avoid opioids in the setting of potential delirium if possible * Continue Lyrica 25 mg BID * DVT prophylaxis: Lovenox subcutaneous * HTN: Continue amlodipine 5 mg, furosemide 20 mg. * Depression: Continue with olanzapine 15 mg and trazodone 50 mg QHS * started treatment with 50,000 IU vitamin D weekly for eight weeks * PT evaluation put in will follow * Regular diet * CODE STATUS: DNR/DNI Patient's son who is POA is currently traveling and may not have phone service. If needed, contact her son's Veronica David Problem List: 1. High blood pressure 2. Depression 3. Closed left ankle fracture 4. Dementia 5. Vitamin D deficiency Pain Ratin Pain Location: left ankle Pain Goal: Pain 4 or less Pain Plan: tylenol Tomorrow's Labs & Rationales: none
[2016-09-02 08:38] VITALS: BP 120/70
[2016-09-02 16:29] VITALS: BP 135/73
[2016-09-03 00:52] VITALS: BP 132/78
--- NOTE | 2016-09-03 07:01 | PN- Housestaff ---
See Addendum Subjective Follow-up For: Left fibular fracture Subjective: I saw and examined Joanne this am, she is alert, oriented to place but not place and time. Does not speak much but makes eye contacts and responds in 2-3 word sentences. Patient has corssed her legs in bed. Does not response when asked if she feels more comfortable or has pain. Reports she does not remember is she has moved her bowels, does not report abdominal pain, no chest pain or SOB. She follows directions and moves her toes when asked, she does not repond when asked if she feel when touching her toes but moves them when touched, response is symmetric on both sides. Review of Systems Constitutional: Denies: chills, fever, weakness. EENTM: Reports: no symptoms. Cardiovascular: Denies: chest pain, palpitations. Respiratory: Denies: cough, short of breath. Gastrointestinal: Reports: constipation. Denies: abdominal pain, nausea, vomiting. Genitourinary: Reports: no symptoms. Musculoskeletal: Reports: no symptoms. Skin: Reports: no symptoms. Neurological/Psychological: Reports: dementia. Objective Last 24 Hrs of Vital Signs/I&O Vital Signs Date Time Temp Pulse Resp B/P Pulse O2 O2 Flow FiO2 Ox Delivery Rate 09/03 0752 97.6 70 20 120/63 95 Room Air 09/03 0052 97.4 80 20 132/78 95 09/03 0000 Room Air 09/02 1629 97.6 87 20 135/73 94 Room Air 09/02 1135 Room Air Intake & Output 09/03 1600 09/03 0800 09/03 0000 Intake Total 240 240 Output Total Balance 240 240 Intake, Oral 240 240 Physical Exam General Appearance: Alert, Cooperative, No Acute Distress, oriented to place but not person and time Skin: left foot swelling and bruising HEENT: Atraumatic, EOMI Neck: No JVD Cardiovascular: Normal S1, Normal S2, No Murmurs Lungs: Clear to Auscultation, Normal Air Movement Abdomen: Soft, No Tenderness Neurological: Normal Speech, Normal Tone, Sensation Intact, Cranial Nerves 3-12 NL Extremities: Normal Pulses, there is swelling and bruising on the left foot Vascular: Pulses Symmetrical Current Medications: Current Medications Sig/Jenn Start time Last Medication Dose Route Stop Time Status Admin Acetaminophen 975 MG TID 08/31 1851 AC 09/02 PO 2210 Amlodipine Besylate 5 MG DAILY 09/01 1000 AC 09/02 PO 1048 Diclofenac Sodium 1 SHERINE BID PRN 08/31 181 AC TOP Docusate Sodium 100 MG BID 08/31 220 AC 09/02 PO 2210 Enoxaparin Sodium 40 MG AT BEDTIME 08/31 2199 AC 09/02 SC 2210 Ergocalciferol 50,000 IU Q168 09/02 1015 AC 09/02 PO 1248 Furosemide 20 MG DAILY 09/01 1000 AC 09/02 PO 1048 Ibuprofen 600 MG Q6P PRN 08/31 211 AC PO Olanzapine 15 MG AT BEDTIME 08/31 2199 AC 09/02 PO 2210 Pregabalin 25 MG BID 08/31 2199 AC 09/02 PO 2210 Trazodone HCl 50 MG AT BEDTIME 08/31 2199 AC 09/02 PO 2210 Assessment/Plan Assessment: 85-year-old lady with a PMH of dementia, HTN, depression/anxiety who was BIBA from [facility] after suffering a fall this morning. VS: 154/65, HR 90, RR 18, SPO2 95% on RA, T 97.4 Pertinent labs: WBC 12.7/30.3, BUN/Cr CR 18/0.6, glucose 170, sodium 142, potassium 3.7 Left ankle x-ray: 5 mm displaced lateral malleolar fracture with bimalleolar soft tissues swelling. Widening of the ankle mortise is seen anteriorly and laterally. No additional fractures seen. There is small size calcaneal heel spur. Problem list: 1. lateral fibula fracture, no misalignment 2. HTN 3. Depression/anxiety 4. Vitamin D deficiency Plan: * Orthopedics saw the patient and had discussion with family with regards to risks/benefits of surgery versus conservative management and decided for conservative management, repeat Xray did not show any mislignment. Will discharge the patient to [facility]. * Analgesia: Tylenol 975 mg Q8 scheduled. * Continue Lyrica 25 mg BID * DVT prophylaxis: Lovenox subcutaneous - started aspirin at discharge to continue for 6 weeks SHE WILL BE NON WEIGHTBEARING FOR 6 WEEKS. * HTN: Continue amlodipine 5 mg, furosemide 20 mg. * Depression: Continue with olanzapine 15 mg and trazodone 50 mg QHS * started treatment with 50,000 IU vitamin D weekly for eight weeks * PT evaluation recommended STR. will go to STR today. * Regular diet * CODE STATUS: DNR/DNI Patient's son who is POA is currently traveling and may not have phone service. If needed, contact her son's Veronica David Problem List: 1. Vitamin D deficiency 2. Closed left ankle fracture 3. Dementia Pain Ratin Pain Location: left foot Pain Goal: Pain 4 or less Pain Plan: tylenol scheduled dose Tomorrow's Labs & Rationales: no labs
[2016-09-03] MEDS ORDERED: VITAMIN D250000 UNIT PO (07:47)
[2016-09-03 07:52] VITALS: BP 120/63
--- NOTE | 2016-09-03 07:55 | Patient Discharge Instructions ---
Discharge Instructions General Discharge Information You were seen/treated for: Left ankle fracture. Low vitamin D You had these procedures: Splinting of the left ankle Watch for these problems: Worsening pain or swelling in the left ankle. Numbness in the left foot. Bruising of the skin of the left ankle Special Instructions: If you experience any worsening pain, swelling, numbness in the left foot/ankle, please contact your orthopedic surgeon Dr. Goodrich within 10 days of the initial fracture to discuss options with management. Please follow-up with your PCP within one week after discharge. Please take all medications as directed. Nonweight bearing for 6 weeks of the left ankle. PLEASE NOTE THAT WE HAVE STARTED YOU ON VITAMIN D (due to vitamin D deficiency) AND ASPIRIN (ro prevent blood clot) Diet Continue normal diet: Yes Activity Activity Self Limited: Yes Additional ACTIVITY Info: Nonweightbearing of the left ankle for 6 weeks Acute Coronary Syndrome Inclusion Criteria At DC or during hospital stay patient has or had the following: ACS DIAGNOSIS No Discharge Core Measures Meds if any: Prescribed or Continued at Discharge Meds if any: NOT Prescribed or Continued at Discharge Congestive Heart Failure Inclusion Criteria At DC or during hospital stay patient has or had the following: CHF DIAGNOSIS No Discharge Core Measures Meds if any: Prescribed or Continued at Discharge Meds if any: NOT Prescribed or Continued at Discharge Cerebrovascular accident Inclusion Criteria At DC or during hospital stay patient has or had the following: CVA/TIA Diagnosis No Discharge Core Measures Meds if any: Prescribed or Continued at Discharge Meds if any: NOT Prescribed or Continued at Discharge Venous thromboembolism Inclusion Criteria VTE Diagnosis No VTE Type NONE VTE Confirmed by (Test) NONE Discharge Core Measures - Per Current guidelines, there needs to be overlap - treatment for the first 5 days of Warfarin therapy. - If discharged on Warfarin prior to 5 days of - overlap therapy, the patient will need to be - assessed for post discharge needs including - *Post discharge parental anticoagulation - *Warfarin and/or parental anticoagulation education - *Follow up date to check INR post discharge At least 5 days overlap therapy as Inpatient No Meds if any: Prescribed or Continued at Discharge Note: Overlap Therapy is Warfarin and Anticoagulant Meds if any: NOT Prescribed or Continued at Discharge
[2016-09-03] MEDS ORDERED: ASPIRIN EC81 M1 PO (08:40)
[2016-09-03 12:52] VITALS: BP 120/90
== END 2016-09-03 13:13 | DRG 563 ==
LOC: ENRESERVDT → ENRESERVTM → ERH 09:26 → 2NB 15:08 → ERHI 15:08 → ENPENDDIS 15:08 → 2NB 19:10
PROVIDERS: Emergency Medicine; ADMIT Internal Medicine
PROC: 2W3MX1Z Immobilization of Left Lower Extremity using Splint (ICD-10-PCS; principal; 2016-09-01)
DX: S82.452A Displaced comminuted fracture of shaft of left fibula, initial encounter for closed fracture (principal); F03.90 Unspecified dementia, unspecified severity, without behavioral disturbance, psychotic disturbance, mood disturbance, and anxiety; W18.30XA Fall on same level, unspecified, initial encounter; Y92.099 Unspecified place in other non-institutional residence as the place of occurrence of the external cause; I10 Essential (primary) hypertension; F41.8 Other specified anxiety disorders; E55.9 Vitamin D deficiency, unspecified; Z66 Do not resuscitate
CPT/HCPCS: 2NSBP; 36415; 73030-LT; 73610-LT; 81001; 82436; 90662; 97112-GO; 97116-GO; 97162-GP; 97166-GO; 97530-GO; J1650